=== PATIENT | male | born 1950 | race Caucasian/White ===

== ENCOUNTER 2018-01-04 17:30 | Inpatient (IN) ==
[2018-01-04] MEDS ORDERED: HYDROmorphone PF Inj 2 MG/ML Vial IV.PUSH ONE (17:46)
[2018-01-04 18:04] LABS: Baso # (Auto) 0.1 th/mm3 (0.0-0.2); Baso % (Auto) 0.9 % (0.0-2.0); Eos # (Auto) 0.1 th/mm3 (0.0-0.4); Eos % (Auto) 1.4 % (0.0-4.0); Hematocrit 45.6 % (39.0-51.0); Hemoglobin 15.6 gm/dL (13.0-17.0); Lymph # (Auto) 1.1 th/mm3 (1.0-4.8); Lymph % (Auto) 10.3 % (9.0-44.0); Mean Corpuscular HGB Conc 34.1 % (32.0-36.0); Mean Corpuscular Hemoglobin 33.1 pg (27.0-34.0); Mean Platelet Volume 7.5 fL (7.0-11.0); Mono # (Auto) 0.5 th/mm3 (0.0-0.9); Mono % (Auto) 5.3 % (0.0-8.0); Neut # (Auto) 8.6 th/mm3 (1.8-7.7); Neut % (Auto) 82.1 % (16.0-70.0); Platelet Count 183 th/mm3 (150-450); Red Cell Distribution Width 13.7 % (11.6-17.2); White Blood Count 10.4 th/mm3 (4.0-11.0)
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
[2018-01-04 18:34] LABS: Anion Gap 7 meq/L (5-15); Blood Urea Nitrogen 25 mg/dL (7-18); Calcium 8.7 mg/dL (8.5-10.1); Carbon Dioxide 27.6 meq/L (21.0-32.0); Chloride 102 meq/L (98-107); Glomerular Filtration Rate 44 mL/min (>89); Glucose,Random 128 mg/dL (74-106); Sodium 137 meq/L (136-145)
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
[2018-01-04] MEDS ORDERED: ALPRAZolam 0.5 MG Tablet PO ONE (19:20)
[2018-01-04] MEDS ORDERED: Gadobutrol PF 2 MMOL/2 ML Vial (for RAD) IV.SIG ONE (19:48)
--- NOTE | 2018-01-04 20:45 | MR ---
EXAM DATE: 01/04/2018 8:28 PM EST AGE/SEX: 67 years / Male INDICATIONS: . Fall, Abnormal CT. CLINICAL DATA: This is the patient's initial encounter. Patient reports that signs and symptoms have been present for 1 day and indicates a pain score of 5/10. MEDICAL/SURGICAL HISTORY: Hypercholesterolemia. Hypertension. Cardiovascular disease. Coronar y artery stent. Left knee ORIF. Left hip ORIF. COMPARISON: No prior exams available for comparison. TECHNIQUE: Multiplanar, multisequence examination of the brain was performed without and with 10 ml G adavist (gadobutrol) contrast as a single exam dose. FINDINGS: Cerebrum: The examination was performed to characterize a solitary 1 cm hyperdensity in the right po sterior parietal mid convexity region on noncontrast CT. There is evidence of an irregular shaped are a of T2 prolongation in the posterior right parietal mid convexity measuring 9 x 4 mm; this correlate s with the area of the CT abnormality. There is no signal abnormality seen on T1-weighted images and no abnormal contrast enhancement. On the susceptibility weighted sequence, there is evidence of susce ptibility artifact confirming the presence of blood products. White Matter: No significant signal abnormalities are seen in the white matter. Posterior Fossa: The examination was performed to characterize hypodensity in the left ashley on noncon trast CT. The MR demonstrates a smooth round small focal area of T2 prolongation and T1 prolongation in the left mid ashley without contrast enhancement and without susceptibility artifact. There is no re stricted diffusion; the appearance is characteristic of old lacunar infarct. The cerebellum is intact . Diffusion Imaging: No focal areas of restricted diffusion are seen. No evidence of acute infarction . Extracranial: The visualized portions of the orbits and paranasal sinuses are unremarkable. Post Contrast: No abnormal areas of parenchymal or dural enhancement. No evidence of blood-brain ba rrier breakdown. CONCLUSION: 1. Old lacunar infarct in the left mid ashley. 2. Signal abnormality in the posterior right parietal region correlates with the hypodensity seen on CT scan and has signal characteristics characteristic of blood products. Electronically signed by: González Arias MD 01/04/2018 8:44 PM EST
[2018-01-04] MEDS ORDERED: Naloxone Inj 0.4 MG/ML Vial IV.PUSH PRN (21:13)
[2018-01-04] MEDS ORDERED: Post-op Orders (for Pharmacy) OTHER ONE (21:13)
[2018-01-04] MEDS ORDERED: Morphine Inj 4 MG/ML Vial ONE (21:26)
[2018-01-04] MEDS: Morphine Inj 4 MG/ML Vial IV.PUSH PRN (21:30)
[2018-01-04] MEDS ORDERED: Sodium Chloride 0.9% 2 ML Flush PRN IV.FLUSH (21:43)
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
[2018-01-04] MEDS ORDERED: Zolpidem Tartrate 5 MG Tablet PO PRN (22:11)
[2018-01-04] MEDS: levETIRAcetam 500 MG Tablet PO SCH (22:21)
[2018-01-04] MEDS: Sod Chloride 0.9% Inj 1,000 ML IV.CONT SCH (22:26)
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
[2018-01-05] MEDS: Morphine Inj 4 MG/ML Vial IV.PUSH PRN ×6 (00:47→22:23)
[2018-01-05 04:24] LABS: Baso % (Auto) 0.4 % (0.0-2.0); Eos % (Auto) 0.2 % (0.0-4.0); Hematocrit 39.1 % (39.0-51.0); Hemoglobin 13.9 gm/dL (13.0-17.0); Lymph # (Auto) 1.1 th/mm3 (1.0-4.8); Lymph % (Auto) 10.1 % (9.0-44.0); Mean Corpuscular HGB Conc 35.5 % (32.0-36.0); Mean Corpuscular Hemoglobin 33.9 pg (27.0-34.0); Mean Corpuscular Volume 95.5 fL (80.0-100.0); Mean Platelet Volume 7.3 fL (7.0-11.0); Mono # (Auto) 0.9 th/mm3 (0.0-0.9); Mono % (Auto) 8.7 % (0.0-8.0); Neut # (Auto) 8.6 th/mm3 (1.8-7.7); Neut % (Auto) 80.6 % (16.0-70.0); Platelet Count 164 th/mm3 (150-450); Red Blood Count 4.09 mil/mm3 (4.50-5.90); Red Cell Distribution Width 13.7 % (11.6-17.2); White Blood Count 10.7 th/mm3 (4.0-11.0)
[2018-01-05 04:49] LABS: Calcium 8.4 mg/dL (8.5-10.1); Carbon Dioxide 29.6 meq/L (21.0-32.0); Potassium 4.6 meq/L (3.5-5.1)
[2018-01-05] MEDS: Levothyroxine 100 MCG Tablet PO SCH (06:11)
[2018-01-05] MEDS: Levothyroxine 75 MCG Tablet PO SCH (06:11)
[2018-01-05] MEDS: Methocarbamol 500 MG Tablet PO SCH ×3 (06:48→21:18)
--- NOTE | 2018-01-05 06:52 | XR ---
EXAM DATE: 01/05/2018 6:47 AM EST AGE/SEX: 67 years / Male INDICATIONS: Shortness of breath, possible pneumothorax, rib fractures. CLINICAL DATA: This is the patient's subsequent encounter. Patient reports that signs and symptoms h ave been present for 2 days and indicates a pain score of 10/10. MEDICAL/SURGICAL HISTORY: . Hypercholesterolemia. Hypertension. Cardiovascular disease. Coron frankie artery stent. COMPARISON: No prior exams available for comparison. FINDINGS: Single view the chest symptoms or there is mild diffuse interstitial prominence throughout the lungs. The heart and mediastinum unremarkable. There are number of left-sided rib fractures superiorly, age indeterminant but could be healed. There is some mild pleural thickening adjacent to the fractures o f the thoracolumbar acute. The patient has old fracture of the left lateral clavicle. There is one he aled right-sided rib fracture.. CONCLUSION: Diffuse interstitial lung disease. There are multiple left-sided rib fractures superiorly. The left s econd rib could be an acute fracture. The fourth rib fracture appears to be more chronic possibly tram n a healed. Electronically signed by: Saroj Shabazz MD 01/05/2018 6:51 AM EST
[2018-01-05] MEDS: Senna/Docusate Sodium 8.6/50 MG Tablet PO SCH ×2 (08:09→21:19)
[2018-01-05] MEDS: Atenolol 100 MG Tablet PO SCH (08:09)
[2018-01-05] MEDS: levETIRAcetam 500 MG Tablet PO SCH ×2 (08:09→21:19)
[2018-01-05] MEDS: Lidocaine 5% Patch T-DERMAL SCH (08:10)
[2018-01-05] MEDS: Sodium Chloride 0.9% 2 ML Flush BID IV.FLUSH SCH ×2 (08:10→21:29)
[2018-01-05] MEDS: Sod Chloride 0.9% Inj 1,000 ML IV.CONT SCH ×2 (08:11→16:52)
[2018-01-05] MEDS ORDERED: Non-Formulary Drug (Levothyroxine [Levothyroxine] 175 MCG) PO SCH (09:00)
[2018-01-05] MEDS: FLUoxetine 20 MG Capsule PO SCH (10:36)
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
--- NOTE | 2018-01-05 13:52 | CT ---
EXAM DATE: 01/05/2018 1:45 PM EST AGE/SEX: 67 years / Male INDICATIONS: Evaluate intracerebral hemorrhage CLINICAL DATA: This is the patient's initial encounter. Patient reports that signs and symptoms have been present for 1 day and indicates a pain score of 9/10. MEDICAL/SURGICAL HISTORY: Hypertension. Myocardial infarction. None. RADIATION DOSE: 44.33 CTDI (mGy) COMPARISON: [facility] [place], CT HEAD W/O CONTRAST, 01/04/2018. C, MR HEAD W & W/O CONTRAST, 01/04/2018. . TECHNIQUE: CT of the head without contrast. Using automated exposure control and adjustment of the mA and/or kV according to patient size, radiation dose was kept as low as reasonably achievable to ob tain optimal diagnostic quality images. DICOM format image data is available electronically for revi ew and comparison. FINDINGS: Cerebrum: There are tiny left high parietal areas of acute parenchymal hemorrhage are now visible an d measure 9 and 4 mm. Very subtle right high parietal high density is noted and either represents foc al parenchymal or possible minimal subarachnoid hemorrhage. The previously noted focal parenchymal bl eed within the right posterior parietal lobe appears to have resolved. No midline shift is noted. No acute infarction is noted. Posterior Fossa: The cerebellum and brainstem are intact. The 4th ventricle is midline. The cerebe llopontine angle is unremarkable. Extracranial: The visualized portion of the orbits is intact. Skull: The calvaria is intact. No evidence of skull fracture. CONCLUSION: 1. Tiny left high parietal areas of acute parenchymal hemorrhage are now visible and measure 9 and 4 mm. Very subtle right high parietal high density is noted and either represents focal parenchymal or possible minimal subarachnoid hemorrhage. The previously noted focal parenchymal bleed within the ri ght posterior parietal lobe appears to have resolved. No midline shift is noted. No acute infarction is noted. . Electronically signed by: Ricky Bobo MD 01/05/2018 1:50 PM EST
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
[2018-01-06] MEDS: Sod Chloride 0.9% Inj 1,000 ML IV.CONT SCH ×2 (03:15→12:46)
[2018-01-06] MEDS: Morphine Inj 4 MG/ML Vial IV.PUSH PRN ×4 (05:36→17:09)
[2018-01-06] MEDS: Levothyroxine 75 MCG Tablet PO SCH (05:37)
[2018-01-06] MEDS: Methocarbamol 500 MG Tablet PO SCH ×2 (05:37→13:53)
[2018-01-06] MEDS: Levothyroxine 100 MCG Tablet PO SCH (05:37)
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
[2018-01-06 06:19] LABS: Baso % (Auto) 0.2 % (0.0-2.0); Eos # (Auto) 0.2 th/mm3 (0.0-0.4); Hematocrit 36.8 % (39.0-51.0); Hemoglobin 12.7 gm/dL (13.0-17.0); Lymph # (Auto) 0.8 th/mm3 (1.0-4.8); Mean Corpuscular HGB Conc 34.5 % (32.0-36.0); Mean Corpuscular Hemoglobin 33.6 pg (27.0-34.0); Mean Corpuscular Volume 97.3 fL (80.0-100.0); Mean Platelet Volume 7.6 fL (7.0-11.0); Mono # (Auto) 0.8 th/mm3 (0.0-0.9); Mono % (Auto) 8.6 % (0.0-8.0); Neut # (Auto) 7.3 th/mm3 (1.8-7.7); Neut % (Auto) 80.2 % (16.0-70.0); Platelet Count 134 th/mm3 (150-450); Red Blood Count 3.78 mil/mm3 (4.50-5.90); White Blood Count 9.1 th/mm3 (4.0-11.0)
[2018-01-06 06:49] LABS: Alanine Aminotransferase 30 U/L (12-78); Anion Gap 7 meq/L (5-15); Aspartate Aminotransferase 42 U/L (15-37); Blood Urea Nitrogen 17 mg/dL (7-18); Calcium 8.3 mg/dL (8.5-10.1); Carbon Dioxide 28.6 meq/L (21.0-32.0); Chloride 101 meq/L (98-107); Glomerular Filtration Rate 65 mL/min (>89); Glucose,Random 111 mg/dL (74-106); Potassium 4.2 meq/L (3.5-5.1); Sodium 137 meq/L (136-145)
[2018-01-06 06:51] LABS: Alkaline Phosphatase 46 U/L (45-117); Total Protein 6.1 g/dL (6.4-8.2)
[2018-01-06] MEDS: FLUoxetine 20 MG Capsule PO SCH (08:43)
[2018-01-06] MEDS: Atenolol 100 MG Tablet PO SCH (08:43)
[2018-01-06] MEDS: Senna/Docusate Sodium 8.6/50 MG Tablet PO SCH (08:44)
[2018-01-06] MEDS: levETIRAcetam 500 MG Tablet PO SCH (08:44)
[2018-01-06] MEDS: Lidocaine 5% Patch T-DERMAL SCH (08:46)
[2018-01-06] MEDS: Sodium Chloride 0.9% 2 ML Flush BID IV.FLUSH SCH (08:52)
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
[2018-01-06 15:41] VITALS: BP 123/65; PULSE 66; RESP 16; TEMP 98.4; O2SAT 96
[2018-01-06] MEDS ORDERED: ALPRAZolam 0.25 MG Tablet PO ONE (16:45)
== END 2018-01-06 20:24 | disposition home or self-care (01) ==
LOC: NEPC 17:30 → NEDA 19:38 → N03 22:05 → N05 01-05 15:29
PROVIDERS: ADMIT Surgery; ATTEND Surgery